=== PATIENT | male | born 1990 | race Caucasian/White ===

== ENCOUNTER 2021-03-30 06:00 | Outpatient (CLI) | payer BC, SELFPAY | END 2021-03-30 06:01 | disposition home or self-care (01) | LOC: LAB 02-09 14:41 | PROVIDERS: Visit Provider Emergency Medicine | DX: R10.9 Unspecified abdominal pain (principal); R11.2 Nausea with vomiting, unspecified; Z87.442 Personal history of urinary calculi | CPT/HCPCS: 81000 ==

== ENCOUNTER → 2022-02-26 11:07 | Outpatient (BNVA) | payer BC, SELFPAY | PROVIDERS: Visit Provider Registered Nurse Neonatal Intensive Care | DX: J02.0 Streptococcal pharyngitis (principal) | CPT/HCPCS: 87880 ==